=== PATIENT | female | born 1940 | race Two or more races ===

== ENCOUNTER 2021-05-19 08:50 | Emergency (ER) | payer OTHER, MEDICAID ==
[2021-05-19 09:28] VITALS: BP 110/69
[2021-05-19] MEDS ORDERED: ACETAMINOPHEN 325 MG TAB PO ONE (09:45)
== END 2021-05-19 10:34 | disposition home or self-care (01) ==
LOC: ER 08:50
DX: M13.862 Other specified arthritis, left knee (principal); M79.89 Other specified soft tissue disorders; Z86.73 Personal history of transient ischemic attack (TIA), and cerebral infarction without residual deficits; Z88.6 Allergy status to analgesic agent
CPT/HCPCS: 73562